=== PATIENT | male | born 1995 | race Caucasian/White ===

== ENCOUNTER 2019-03-12 14:18 | Emergency (ER) | payer OTHER ==
--- NOTE | 2019-03-12 14:20 | ER Report ---
History and Physical Time Seen By MD: 14:16 HPI/ROS CHIEF COMPLAINT: Right lower extremity godfrey laceration HISTORY OF PRESENT ILLNESS: Patient is a 23-year-old male here with complaints of chin laceration which occurred shortly prior to arrival when the patient slipped and landed on a rock. There are 2 horizontal lacerations one of which is 4 cm lateral, other which is 2 cm medial. Patient is neurovascularly intact distal to the injury site with no obvious bony abnormality. REVIEW OF SYSTEMS: Constitutional: No fever, no chills. Musculoskeletal: No bony abnormality Skin: 4 cm lateral, other which is 2 cm medial Neurological: Neurovascular exam intact Allergies: Coded Allergies: No Known Drug Allergies (Unverified , 03/12/19) Home Meds Reported Medications Zolpidem Tartrate (AMBIEN) 5 Mg Tablet, 1 TAB PO QHS, TAB 03/12/19 Constitutional Vital Sign - Last 24 Hours 03/12/19 14:24 Temp 99.1 Pulse 120 Resp 12 B/P (MAP) 172/112 Pulse Ox 95 O2 Delivery Room Air Physical Exam General Appearance: The patient is alert, has no immediate need for airway protection and no signs of toxicity. No acute distress Neurological: Neurovascular exam intact Skin: 4 cm lateral, other which is 2 cm medial Musculoskeletal: Extremities are nontender, nonswollen and have full range of motion. DIFFERENTIAL DIAGNOSIS: After history and physical exam differential diagnosis was considered for laceration, fracture Medical Decision Making ED Course/Re-evaluation ED Course Patient is a 23-year-old male here with complaints of horizontal lacerations caused by a rock while taking on his right lower extremity just distal to the knee. Patient is neurovascularly intact at time of evaluation. Laceration was anesthetized using approximately 6 mL of 2% lidocaine with epinephrine after the site was cleaned. The laceration was closed using 3-0 Ethilon sutures x 5 for the 4 cm lac, 3 for the 2 cm lac and Dermabond. Patient tolerated procedure well. Removal in 7-10 days. Monitor for signs of infection. Return precautions provided.. Procedure Laceration repair. . Laceration was anesthetized using approximately 6 mL of 2% lidocaine with epinephrine after the site was cleaned. The laceration was closed using 3-0 Ethilon sutures x 5 for the 4 cm lac, 3 for the 2 cm lac and Dermabond.Sterile dressing was applied. Patient tolerated procedure well- Decision to Disposition Date: Mar 12, 2019 Decision to Disposition Time: 15:04 Depart Departure Latest Vital Signs Vital Signs Date Time Temp Pulse Resp B/P (MAP) Pulse Ox O2 Delivery O2 Flow Rate FiO2 03/12/19 14:24 99.1 120 12 172/112 95 Room Air Impression: Primary Impression: Laceration Condition: Improved Disposition: HOME OR SELF-CARE Patient Instructions: Laceration (ED) Additional Instructions: Please monitor your laceration for signs of infection. Please return promptly if you develop worsening pain, fevers, rash. He will need to have your sutures removed in 7-10 days. RACHELLE GIRON DO Mar 12, 2019 14:20
[2019-03-12 14:24] VITALS: BP 172/112
[2019-03-12] MEDS ORDERED: ZOLP-1 PO (14:29)
== END 2019-03-12 15:08 | disposition home or self-care (01) ==
LOC: ER 14:30
DX: S81.811A Laceration without foreign body, right lower leg, initial encounter (principal); W01.198A Fall on same level from slipping, tripping and stumbling with subsequent striking against other object, initial encounter; Y93.01 Activity, walking, marching and hiking
CPT/HCPCS: 99283